=== PATIENT | female | born 2000 | race Caucasian/White ===

== ENCOUNTER 2020-06-01 21:31 | Emergency (ER) | payer SELFPAY ==
--- NOTE | 2020-06-01 21:55 | ER Document Report ---
ED Medical Screen (RME) - General Chief Complaint: Urinary Problem Stated Complaint: POSS UTI WITH BLEEDING Time Seen by Provider: 06/01/20 21:53 Notes: Patient presents complaining of noticing blood when she wipes. Patient is uncertain if this is coming from her urine or vaginal area. Patient states she has had pain with intercourse for the past week. Patient states that her spouse told her that he felt a lump within her vagina. Patient complains of lower pelvic pain for the past 2 days. Patient reports some urinary frequency. I have greeted and performed a rapid initial assessment of this patient. A comprehensive ED assessment and evaluation of the patient, analysis of test results and completion of the medical decision making process will be conducted by additional ED providers. Physical Exam - Vital signs Vitals: Temp Pulse Resp BP Pulse Ox 98.0 F 90 17 122/60 100 06/01/20 21:38 06/01/20 21:38 06/01/20 21:38 06/01/20 21:38 06/01/20 21:38 - Abdominal Tenderness: Tender - Lower pelvic Course - Vital Signs Vital signs: Temp Pulse Resp BP Pulse Ox 98.0 F 90 17 122/60 100 06/01/20 21:38 06/01/20 21:38 06/01/20 21:38 06/01/20 21:38 06/01/20 21:38
[2020-06-01 22:38] LABS: APPEARANCE,URINE CLOUDY; BILIRUBIN,URINE NEGATIVE (NEGATIVE); COLOR,URINE YELLOW; GLUCOSE, URINE NEGATIVE (NEGATIVE); KETONES,URINE TRACE mg/dL (NEGATIVE); LEUKOCYTE ESTERASE,URINE LARGE (NEGATIVE); NITRITE,URINE POSITIVE (NEGATIVE); PROTEIN,URINE 100 mg/dL (NEGATIVE); URINE SPECIFIC GRAVITY 1.019; UROBILINOGEN,URINE NEGATIVE mg/dL (<2.0)
[2020-06-02 00:03] LABS: CHLAM PCR NOT DETECTED (NOT DETECT)
[2020-06-02] MEDS ORDERED: NITROFURANTOIN MONOHYD/M-CRYST 100 MG CAPSULE PO ONE (00:09)
[2020-06-02 00:14] VITALS: BP 120/63
--- NOTE | 2020-06-02 00:15 | ER Document Report ---
ED General - General Chief Complaint: Urinary Problem Stated Complaint: POSS UTI WITH BLEEDING Time Seen by Provider: 06/01/20 21:53 [facility] [Provider Group] - Follow up as needed Notes: Patient is a 20-year-old white female with no significant past medical history presents the emergency department the chief complaint of burning with urination frequency of urination increased over the past 2 days. She states she is newly to her about 2 or 3 weeks ago. She states that she was a virgin prior to marrying as was her . She states that over the past week she has had some dyspareunia. She states that her states that he feels like he can feel a lump inside of her vagina area. She states she is noticed some bright red blood on the toilet tissue with wiping after urination. States she is also developed some lower pelvic pain. Denies any vaginal discharge or overt bleeding. No abdominal pain. No fever, nausea vomiting or diarrhea, chills or night sweats. - Related Data Allergies/Adverse Reactions: No Known Allergies Allergy (Unverified 06/02/20 00:07) Home Medications: sertraline, lamictal, hydroxyzine, zofran, Past Medical History - Social History Smoking Status: Never Smoker Family History: Reviewed & Not Pertinent Review of Systems - Review of Systems Constitutional: denies: Fever EENT: denies: Nose pain Cardiovascular: denies: Dizziness Respiratory: denies: Hemoptysis Gastrointestinal: denies: Poor appetite Genitourinary: denies: Incontinence Female Genitourinary: denies: Post menopausal Musculoskeletal: denies: Neck pain Skin: denies: Dryness Hematologic/Lymphatic: denies: Blood clots Neurological/Psychological: denies: Loss of power Physical Exam - Vital signs Vitals: Temp Pulse Resp BP Pulse Ox 98.0 F 90 17 122/60 100 06/01/20 21:38 06/01/20 21:38 06/01/20 21:38 06/01/20 21:38 06/01/20 21:38 - General General appearance: Appears well, Alert In distress: None - Respiratory Respiratory status: No respiratory distress Chest status: Nontender Breath sounds: Normal Chest palpation: Normal - Cardiovascular Rhythm: Regular Heart sounds: Normal auscultation - Abdominal Inspection: Normal Distension: No distension Bowel sounds: Normal Tenderness: Nontender Organomegaly: No organomegaly - Genitourinary Notes: Patient declined - Neurological Neuro grossly intact: Yes Cognition: Normal Orientation: AAOx4 - Psychological Associated symptoms: Normal affect, Normal mood - Skin Skin Temperature: Warm Skin Moisture: Dry Skin Color: Normal Course - Re-evaluation Re-evalutation: 06/02/20 00:16 Discussed with patient that although she does have a significant urinary tract infection on urinalysis it is imperative that she have a further investigation into the dyspareunia the suspected palpable lump by her in the vagina and the pelvic pain. She is pending GC studies so she states she has no worry for STD as they are both newlywed and previously both virgin. I advised her we could perform those examinations here with a pelvic exam bimanual and potential vaginal ultrasound. Patient states that she just established her medical care with the and is planning to see a battery container inspector. She states that she would really rather trial the course of antibiotics with UTI to see if that improves rest of her symptoms prior to going further. She understand the risks versus benefits as they were discussed. She understands she is free to return here at any time with any new, persistent or worsening symptoms or any nearest ER. States that she prefers to have this done at the battery container inspector office and she will call them first thing next week for continued follow-up. She is of sound mind and mental capacity to make informed decision. 06/02/20 00:18 - Vital Signs Vital signs: Temp Pulse Resp BP Pulse Ox 98.0 F 71 16 120/63 71 L 06/01/20 21:38 06/02/20 00:00 06/02/20 00:00 06/02/20 00:00 06/02/20 00:00 - Laboratory Laboratory results interpreted by me: 06/01/20 22:10 Urine Protein 100 H Urine Ketones TRACE H Urine Blood MODERATE H Urine Nitrite POSITIVE H Ur Leukocyte Esterase LARGE H Discharge - Discharge Clinical Impression: UTI (urinary tract infection) Qualifiers: Urinary tract infection type: site unspecified Hematuria presence: with hematuria Qualified Code(s): N39.0 - Urinary tract infection, site not specified Condition: Stable Disposition: HOME, SELF-CARE Instructions: Nitrofurantoin ([facility]), Urinary Tract Infection ([facility]) Additional Instructions: Please follow-up with the battery container inspector as soon as possible for continued evaluation and management. Please return here or any ER immediately with any new, persistent or worsening symptoms. Prescriptions: Nitrofurantoin Monohyd/M-Cryst [Macrobid 100 mg Capsule] 100 mg PO BID #[id number] Referrals: [facility] [Provider Group] - Follow up as needed
== END 2020-06-02 00:20 | disposition home or self-care (01) ==
LOC: ER 21:31
DX: N39.0 Urinary tract infection, site not specified (principal); R31.9 Hematuria, unspecified; N94.10 Unspecified dyspareunia; Z79.899 Other long term (current) drug therapy
CPT/HCPCS: 99283; 81025; 81001; 87491; 87591; J8499